=== PATIENT | male | born 1960 | race Caucasian/White ===

== ENCOUNTER 2020-12-10 01:31 | Inpatient (IN) | payer OTHER ==
[2020-12-10] VITALS (19 sets, daily range): BP systolic 91–122; BP diastolic 66–83
[~2020-12-10] VITALS: Ht 188 cm; Wt 85.3 kg
[2020-12-10 02:05] LABS: ABG PCO2 56 mmHg (35-45); ABG PH 7.38 (7.35-7.45); ABG PO2 40 mmHg (80-105)
[2020-12-10 02:06] LABS: ABG HCO3 33 mmol/L (22-26); ABG TCO2 35
[2020-12-10 02:32] LABS: BASOPHILS # (AUTO) 0.1 (0.0-0.1); BASOPHILS % 0.5 % (0.0-1.0); EOSINOPHILS # (AUTO) 0.8 (0.0-0.4); EOSINOPHILS % 6.5 % (0.0-6.0); HEMOGLOBIN 10.3 g/dL (14.0-18.0); LYMPHOCYTES # (AUTO) 1.5 (1.0-3.2); LYMPHOCYTES % 12.8 % (18.0-39.1); MEAN CORPUSCULAR HGB CONC 30.3 g/dL (31-35); MEAN CORPUSCULAR VOLUME 102.4 fL (81-99); MONOCYTES # (AUTO) 0.5 (0.2-0.8); MONOCYTES % 4.5 % (4.4-11.3); NEUTROPHILS # (AUTO) 8.7 (2.1-6.9); PLATELET COUNT 299 x10e3/uL (140-360); RED BLOOD COUNT 3.32 x10e6/uL (4.3-5.7); RED CELL DISTRIBUTION WIDTH 17.9 % (11.7-14.4)
[2020-12-10 02:38] LABS: ALANINE AMINOTRANSFERASE 16 IU/L (0-55); ALBUMIN 3.6 g/dL (3.5-5.0); ALBUMIN/GLOBULIN RATIO 0.7 (0.8-2.0); ALKALINE PHOSPHATASE 156 IU/L (40-150); ANION GAP 19.5 mmol/L (8-16); BLOOD UREA NITROGEN 19 mg/dL (7-26); BUN/CREATININE RATIO 16 (6-25); CALCIUM 9.7 mg/dL (8.4-10.2); CARBON DIOXIDE 28 mmol/L (22-29); CHLORIDE 97 mmol/L (98-107); CREATINE KINASE 27 IU/L (30-200); CREATININE, SERUM 1.16 mg/dL (0.72-1.25); EST GLOMERULAR FILTRATION RATE > 60 ML/MIN (60-); GLUCOSE 173 mg/dL (74-118); POTASSIUM 4.5 mmol/L (3.5-5.1); SODIUM 140 mmol/L (136-145)
[2020-12-10 03:22] LABS: INR 1.22; PARTIAL THROMBOPLASTIN TIME 33.3 seconds (23.8-35.5); PROTHROMBIN TIME 16.2 seconds (11.9-14.5)
[2020-12-10 03:33] LABS: B-TYPE NATRIURETIC PEPTIDE2 684.6 pg/mL (0-100)
[2020-12-10] MEDS ORDERED: CEFTRIAXONE SOD 1 GM in SODIUM CHLORIDE 0.9% 50ML 50 ML IV STA (03:39)
[2020-12-10] MEDS ORDERED: CEFTRIAXONE SOD 1 GM/50 ML BAG IV ONE (03:45)
[2020-12-10] MEDS ORDERED: AZITHROMYCIN 500MG/NS 250 ML 250 ML IV ONE (03:45)
[2020-12-10] MEDS ORDERED: IOPAMIDOL 370 MG/ML 200 ML INFUS..BTL INJ ONE (03:56)
[2020-12-10] MEDS ORDERED: SODIUM CHLORIDE 0.9% 50ML 50 ML ONE ×2 (03:57→20:01)
[2020-12-10] MEDS ORDERED: SODIUM CHLORIDE FLUSH 10 ML SYR INJ PRN (04:00)
[2020-12-10] MEDS ORDERED: DEXTROSE 50% SYRINGE 50 ML IV PRN (04:00)
[2020-12-10] MEDS ORDERED: FUROSEMIDE INJ 10 MG/ML 4 ML VIAL IV ONE (04:00)
[2020-12-10 07:00] LABS: CLARITY,URINE CLOUDY (CLEAR); COLOR,URINE YELLOW (YELLOW); KETONES,URINE NEGATIVE (NEGATIVE); LEUKOCYTE ESTERASE ,URINE LARGE (NEGATIVE); NITRITE,URINE NEGATIVE (NEGATIVE); PROTEIN,URINE DIPSTICK NEGATIVE (NEGATIVE); URINE UROBILINOGEN 0.2 mg/dL (0.2 - 1)
[2020-12-10 07:30] LABS: BACTERIA,URINE MODERATE /HPF; EPITHELIAL CELLS,URINE RARE /LPF; RBC,URINE 21-50 /HPF (0-5); WBC,URINE (MAN) >50 /HPF (0-5)
[2020-12-10] MEDS: INSULIN REGULAR, HUMAN 100 UNIT/1 ML 3ML VIAL SQ SCH ×4 (07:30→20:45)
[2020-12-10] MEDS ORDERED: ELIQUIS2.5 MG PO (08:33)
[2020-12-10] MEDS ORDERED: CYMBALTA30 MG (08:33)
[2020-12-10] MEDS ORDERED: FERROUS SULFAT325 MG PO (08:33)
[2020-12-10] MEDS ORDERED: ASPIRIN CHEW81 MG PO (08:33)
[2020-12-10] MEDS ORDERED: DILTIAZEM HCL30 MG PO (08:33)
[2020-12-10] MEDS ORDERED: DOCUSATE SODIU100 MG PO (08:33)
[2020-12-10] MEDS ORDERED: CLONAZEPAM0.5 MG PO (08:33)
[2020-12-10] MEDS ORDERED: VITAMIN B-121000 MC2 PO (08:33)
[2020-12-10] MEDS ORDERED: METOPROLOL TARTRATE 50 MG TAB PO SCH (09:00)
[2020-12-10] MEDS ORDERED: ASPIRIN 81 MG CHEW TAB PO SCH (09:00)
[2020-12-10] MEDS ORDERED: FUROSEMIDE INJ 10 MG/ML 4 ML VIAL IV SCH ×2 (09:00→17:00)
[2020-12-10] MEDS ORDERED: APIXAB 2.5 MG TABLET PO SCH ×3 (09:00→17:00)
[2020-12-10] MEDS ORDERED: FOLIC ACID0.4 MG PO (09:03)
[2020-12-10] MEDS ORDERED: MIRTAZAPINE15 MG PO (09:03)
[2020-12-10] MEDS ORDERED: KLOR-CON20 MEQ (09:03)
[2020-12-10] MEDS ORDERED: ATIVAN0.5 MG PO (09:03)
[2020-12-10] MEDS ORDERED: TRAZODONE HCL50 MG PO (09:03)
[2020-12-10] MEDS ORDERED: POLYETHYLENE GL17 GM PO (09:03)
[2020-12-10] MEDS ORDERED: HYDROCODON-ACE1 EA11 PO (09:03)
[2020-12-10] MEDS ORDERED: NEURONTIN100 MG PO (09:03)
[2020-12-10] MEDS ORDERED: METOPROLOL TAR100 MG PO (09:03)
[2020-12-10] MEDS ORDERED: PANTOPRAZOLE SO40 MG PO (09:03)
[2020-12-10] MEDS ORDERED: LEVALBUTER1.25 MG/3 INH (09:03)
[2020-12-10] MEDS ORDERED: LACTULOSE20 GM/30 M PO (09:03)
[2020-12-10] MEDS ORDERED: SODIUM BICARBO650 MG PO (09:03)
[2020-12-10] MEDS ORDERED: LEVETIRACETAM500 MG PO (09:03)
[2020-12-10] MEDS ORDERED: FUROSEMIDE40 MG PO (09:03)
[2020-12-10] MEDS ORDERED: GUAIFENESI100 MG/5 M PO (09:03)
[2020-12-10] MEDS ORDERED: SENOKOT-S TABL1 EACH PO (09:03)
[2020-12-10 09:09] LABS: CREATINE KINASE MB 0.8 ng/mL (0-5.0)
[2020-12-10] MEDS ORDERED: MULTI-VITAMIN1 EACH PO (09:10)
[2020-12-10] MEDS ORDERED: LEVALBUTEROL HCL SOLN NEBU 1.25 MG/3 ML NEB INH PRN (09:15)
[2020-12-10] MEDS: ASPIRIN 81 MG CHEW TAB PO SCH (09:56)
[2020-12-10] MEDS ORDERED: LACTULOSE SYRUP 20 GM/30 ML UDC PO PRN (13:15)
[2020-12-10] MEDS ORDERED: METOPROLOL TARTRATE INJ 1 MG/ML VIAL IV PRN (13:45)
[2020-12-10] MEDS ORDERED: ACETAMINOPHEN 325 MG TAB PO PRN (13:45)
[2020-12-10] MEDS ORDERED: ONDANSETRON HCL INJ 2MG/ML 2ML 2 MG/ML VIAL IV PRN (13:45)
[2020-12-10] MEDS ORDERED: DILTIAZEM HCL 30 MG TAB PO SCH (14:00)
[2020-12-10] MEDS: GABAPENTIN 100 MG CAP PO SCH (14:11)
[2020-12-10] MEDS: LEVETIRACETAM 500 MG TAB PO SCH (14:11)
[2020-12-10] MEDS: DOCUSATE SODIUM 100 MG CAP PO SCH (16:44)
[2020-12-10] MEDS: DULOXETINE HCL 30 MG DELAYED RELEASE PO SCH (16:44)
[2020-12-10 18:20] LABS: CREATINE KINASE MB 0.9 ng/mL (0-5.0)
[2020-12-10] MEDS: ACETAMINOPHEN/CODEINE 300MG - 30MG TAB PO PRN (19:11)
[2020-12-10] MEDS: CEFTRIAXONE SOD 1 GM/50 ML BAG IV SCH (20:01)
[2020-12-10] MEDS ORDERED: CEFTRIAXONE SOD 1 GM VIAL ONE (20:01)
[2020-12-10] MEDS: AZITHROMYCIN 500MG/NS 250 ML 250 ML IV SCH (20:44)
[2020-12-10] MEDS: METOPROLOL TARTRATE 50 MG TAB PO SCH (20:44)
[2020-12-10] MEDS: MIRTAZAPINE 15 MG TAB PO SCH (20:45)
[2020-12-10] MEDS ORDERED: ENOXAPARIN SOD INJ 40 MG/0.4 ML SYR SC SCH (21:00)
[2020-12-10] MEDS: TRAZODONE HCL 50 MG TAB PO PRN (21:55)
[2020-12-11] VITALS (25 sets, daily range): BP systolic 95–115; BP diastolic 61–88
[2020-12-11] MEDS: LEVETIRACETAM 500 MG TAB PO SCH ×2 (01:27→13:54)
[2020-12-11] MEDS: GABAPENTIN 100 MG CAP PO SCH ×2 (01:27→13:55)
[2020-12-11 05:03] LABS: BASOPHILS % 0.5 % (0.0-1.0); EOSINOPHILS # (AUTO) 0.4 (0.0-0.4); EOSINOPHILS % 4.8 % (0.0-6.0); HEMATOCRIT 31.2 % (38.2-49.6); HEMOGLOBIN 9.2 g/dL (14.0-18.0); LYMPHOCYTES # (AUTO) 0.7 (1.0-3.2); LYMPHOCYTES % 8.4 % (18.0-39.1); MEAN CORPUSCULAR HEMOGLOBIN 30.4 pg (28-32); MEAN CORPUSCULAR HGB CONC 29.5 g/dL (31-35); MONOCYTES # (AUTO) 0.5 (0.2-0.8); MONOCYTES % 6.6 % (4.4-11.3); NEUTROPHILS # (AUTO) 6.2 (2.1-6.9); NEUTROPHILS % 79.3 % (38.7-80.0); PLATELET COUNT 197 x10e3/uL (140-360); RED BLOOD COUNT 3.03 x10e6/uL (4.3-5.7); RED CELL DISTRIBUTION WIDTH 17.8 % (11.7-14.4)
[2020-12-11 05:27] LABS: ALANINE AMINOTRANSFERASE 15 IU/L (0-55); ALBUMIN 3.1 g/dL (3.5-5.0); ALBUMIN/GLOBULIN RATIO 0.8 (0.8-2.0); ALKALINE PHOSPHATASE 131 IU/L (40-150); ANION GAP 14.7 mmol/L (8-16); BLOOD UREA NITROGEN 19 mg/dL (7-26); BUN/CREATININE RATIO 22 (6-25); CALCIUM 9.1 mg/dL (8.4-10.2); CARBON DIOXIDE 34 mmol/L (22-29); CHLORIDE 95 mmol/L (98-107); CREATININE, SERUM 0.85 mg/dL (0.72-1.25); EST GLOMERULAR FILTRATION RATE > 60 ML/MIN (60-); GLUCOSE 92 mg/dL (74-118); POTASSIUM 3.7 mmol/L (3.5-5.1); SODIUM 140 mmol/L (136-145)
[2020-12-11] MEDS: INSULIN REGULAR, HUMAN 100 UNIT/1 ML 3ML VIAL SQ SCH ×4 (07:30→21:00)
[2020-12-11] MEDS: METOPROLOL TARTRATE 50 MG TAB PO SCH ×2 (09:00→21:23)
[2020-12-11] MEDS: ASPIRIN 81 MG CHEW TAB PO SCH (09:25)
[2020-12-11] MEDS: FUROSEMIDE INJ 10 MG/ML 4 ML VIAL IV SCH ×2 (09:25→17:37)
[2020-12-11] MEDS: DOCUSATE SODIUM 100 MG CAP PO SCH ×2 (09:26→17:37)
[2020-12-11] MEDS: FERROUS SULFATE 325 MG TAB PO SCH (09:26)
[2020-12-11] MEDS: SENNA-S TABLET PO SCH (09:28)
[2020-12-11] MEDS: PANTOPRAZOLE SOD 40 MG TABEC PO SCH (09:30)
[2020-12-11] MEDS: LORAZEPAM 0.5 MG TAB PO ONE ×2 (13:54→14:54)
[2020-12-11] MEDS: DULOXETINE HCL 30 MG DELAYED RELEASE PO SCH (17:37)
[2020-12-11] MEDS ORDERED: SODIUM CHLORIDE 0.9% 100 ML ONE (19:44)
[2020-12-11] MEDS ORDERED: CEFTRIAXONE SOD 1 GM VIAL ONE (19:44)
[2020-12-11] MEDS: CEFTRIAXONE SOD 1 GM/50 ML BAG IV SCH (19:53)
[2020-12-11] MEDS: ACETAMINOPHEN/CODEINE 300MG - 30MG TAB PO PRN (19:54)
[2020-12-11] MEDS: AZITHROMYCIN 500MG/NS 250 ML 250 ML IV SCH (20:53)
[2020-12-11] MEDS ORDERED: ENOXAPARIN INJ 80 MG/0.8 ML SYR SC SCH (21:00)
[2020-12-11] MEDS: MIRTAZAPINE 15 MG TAB PO SCH (21:23)
[2020-12-11] MEDS: LORAZEPAM 0.5 MG TAB PO PRN (23:56)
[2020-12-11] MEDS ORDERED: LORAZEPAM 0.5 MG TAB ONE (23:59)
[2020-12-12] VITALS (22 sets, daily range): BP systolic 92–122; BP diastolic 61–88
[2020-12-12] MEDS: LEVETIRACETAM 500 MG TAB PO SCH ×2 (00:15→14:19)
[2020-12-12] MEDS: GABAPENTIN 100 MG CAP PO SCH ×2 (00:15→14:19)
[2020-12-12 06:40] LABS: BASOPHILS % 0.4 % (0.0-1.0); EOSINOPHILS # (AUTO) 0.4 (0.0-0.4); EOSINOPHILS % 5.4 % (0.0-6.0); HEMATOCRIT 33.8 % (38.2-49.6); HEMOGLOBIN 10.1 g/dL (14.0-18.0); LYMPHOCYTES # (AUTO) 1.1 (1.0-3.2); LYMPHOCYTES % 14.8 % (18.0-39.1); MEAN CORPUSCULAR HEMOGLOBIN 30.5 pg (28-32); MEAN CORPUSCULAR HGB CONC 29.9 g/dL (31-35); MEAN CORPUSCULAR VOLUME 102.1 fL (81-99); MONOCYTES # (AUTO) 0.4 (0.2-0.8); MONOCYTES % 5.8 % (4.4-11.3); NEUTROPHILS # (AUTO) 5.4 (2.1-6.9); NEUTROPHILS % 73.1 % (38.7-80.0); PLATELET COUNT 213 x10e3/uL (140-360); RED BLOOD COUNT 3.31 x10e6/uL (4.3-5.7); RED CELL DISTRIBUTION WIDTH 17.5 % (11.7-14.4)
[2020-12-12 06:52] LABS: INR 1.11
[2020-12-12 06:53] LABS: PARTIAL THROMBOPLASTIN TIME 42.6 seconds (23.8-35.5)
[2020-12-12 07:00] LABS: ALANINE AMINOTRANSFERASE 15 IU/L (0-55); ALBUMIN 3.5 g/dL (3.5-5.0); ALBUMIN/GLOBULIN RATIO 0.7 (0.8-2.0); ALKALINE PHOSPHATASE 141 IU/L (40-150); ANION GAP 15.8 mmol/L (8-16); BLOOD UREA NITROGEN 20 mg/dL (7-26); BUN/CREATININE RATIO 20 (6-25); CALCIUM 9.5 mg/dL (8.4-10.2); CARBON DIOXIDE 37 mmol/L (22-29); CHLORIDE 92 mmol/L (98-107); EST GLOMERULAR FILTRATION RATE > 60 ML/MIN (60-); GLUCOSE 78 mg/dL (74-118); POTASSIUM 3.8 mmol/L (3.5-5.1); SODIUM 141 mmol/L (136-145)
[2020-12-12] MEDS: INSULIN REGULAR, HUMAN 100 UNIT/1 ML 3ML VIAL SQ SCH ×4 (07:30→20:45)
[2020-12-12] MEDS: METOPROLOL TARTRATE 50 MG TAB PO SCH ×2 (08:06→21:00)
[2020-12-12] MEDS: PANTOPRAZOLE SOD 40 MG TABEC PO SCH (08:08)
[2020-12-12] MEDS: FERROUS SULFATE 325 MG TAB PO SCH (08:08)
[2020-12-12] MEDS: DOCUSATE SODIUM 100 MG CAP PO SCH ×2 (08:08→16:19)
[2020-12-12] MEDS: SENNA-S TABLET PO SCH (08:08)
[2020-12-12] MEDS: ASPIRIN 81 MG CHEW TAB PO SCH (08:08)
[2020-12-12] MEDS: FUROSEMIDE INJ 10 MG/ML 4 ML VIAL IV SCH ×2 (10:41→16:19)
[2020-12-12 15:17] LABS: BODY FLUID APPEARANCE TURBID; BODY FLUID COLOR RED; BODY FLUID TYPE PLEURAL
[2020-12-12 15:21] LABS: WBC,BODY FLUID 571 cells/uL
[2020-12-12 15:22] LABS: RBC,BODY FLUID 31000 cells/uL
[2020-12-12 16:10] LABS: BASOPHILS,BODY FLUID 1 %; EOSINOPHILS,BODY FLUID 4 %; LYMPHOCYTES,BODY FLUID 19 %; MONO/MACROPHG,BODY FLUID 26 %; NEUTROPHILS,BODY FLUID 27 %; OTHER CELLS,BODY FLUID 23 %
[2020-12-12] MEDS: DULOXETINE HCL 30 MG DELAYED RELEASE PO SCH (16:19)
[2020-12-12] MEDS: CEFTRIAXONE SOD 1 GM/50 ML BAG IV SCH (20:00)
[2020-12-12] MEDS: MIRTAZAPINE 15 MG TAB PO SCH (22:17)
[2020-12-12] MEDS: AZITHROMYCIN 500MG/NS 250 ML 250 ML IV SCH (22:17)
[2020-12-12] MEDS: ACETAMINOPHEN/CODEINE 300MG - 30MG TAB PO PRN (22:18)
[2020-12-12] MEDS: TRAZODONE HCL 50 MG TAB PO PRN (22:18)
[2020-12-12] MEDS ORDERED: SODIUM CHLORIDE 0.9% 100 ML ONE (22:23)
[2020-12-13] VITALS (8 sets, daily range): BP systolic 104–116; BP diastolic 61–77
[2020-12-13] MEDS: LORAZEPAM 0.5 MG TAB PO PRN (01:20)
[2020-12-13] MEDS: LEVETIRACETAM 500 MG TAB PO SCH ×3 (01:20→13:22)
[2020-12-13] MEDS: GABAPENTIN 100 MG CAP PO SCH ×2 (01:20→13:22)
[2020-12-13 05:51] LABS: BASOPHILS % 0.3 % (0.0-1.0); EOSINOPHILS # (AUTO) 0.5 (0.0-0.4); EOSINOPHILS % 6.4 % (0.0-6.0); HEMATOCRIT 29.8 % (38.2-49.6); HEMOGLOBIN 9.3 g/dL (14.0-18.0); LYMPHOCYTES # (AUTO) 0.9 (1.0-3.2); LYMPHOCYTES % 12.2 % (18.0-39.1); MEAN CORPUSCULAR HEMOGLOBIN 30.9 pg (28-32); MEAN CORPUSCULAR HGB CONC 31.2 g/dL (31-35); MONOCYTES # (AUTO) 0.5 (0.2-0.8); MONOCYTES % 7.6 % (4.4-11.3); NEUTROPHILS # (AUTO) 5.1 (2.1-6.9); NEUTROPHILS % 73.1 % (38.7-80.0); PLATELET COUNT 203 x10e3/uL (140-360); RED BLOOD COUNT 3.01 x10e6/uL (4.3-5.7); RED CELL DISTRIBUTION WIDTH 17.3 % (11.7-14.4)
[2020-12-13 06:14] LABS: ANION GAP 15.1 mmol/L (8-16); BLOOD UREA NITROGEN 21 mg/dL (7-26); BUN/CREATININE RATIO 20 (6-25); CARBON DIOXIDE 34 mmol/L (22-29); CHLORIDE 94 mmol/L (98-107); CREATININE, SERUM 1.05 mg/dL (0.72-1.25); EST GLOMERULAR FILTRATION RATE > 60 ML/MIN (60-); GLUCOSE 114 mg/dL (74-118); POTASSIUM 3.1 mmol/L (3.5-5.1); SODIUM 140 mmol/L (136-145)
[2020-12-13] MEDS: INSULIN REGULAR, HUMAN 100 UNIT/1 ML 3ML VIAL SQ SCH ×4 (07:30→20:18)
[2020-12-13] MEDS: FERROUS SULFATE 325 MG TAB PO SCH (08:31)
[2020-12-13] MEDS: FUROSEMIDE INJ 10 MG/ML 4 ML VIAL IV SCH ×2 (08:31→18:10)
[2020-12-13] MEDS: ASPIRIN 81 MG CHEW TAB PO SCH (08:31)
[2020-12-13] MEDS: METOPROLOL TARTRATE 50 MG TAB PO SCH ×2 (08:32→20:17)
[2020-12-13] MEDS: PANTOPRAZOLE SOD 40 MG TABEC PO SCH (08:37)
[2020-12-13] MEDS: DOCUSATE SODIUM 100 MG CAP PO SCH ×2 (08:44→17:00)
[2020-12-13] MEDS: SENNA-S TABLET PO SCH (08:45)
[2020-12-13] MEDS ORDERED: POTASSIUM CHLORIDE 20 MEQ TAB CR PO ONE (11:45)
[2020-12-13] MEDS ORDERED: METOPROLOL TART50 MG PO (12:05)
[2020-12-13] MEDS ORDERED: ONDANSETRON HCL 4 MG ORAL DISINTEGRATING TAB PO PRN (17:45)
[2020-12-13] MEDS: DULOXETINE HCL 30 MG DELAYED RELEASE PO SCH (18:10)
[2020-12-13] MEDS: CEFTRIAXONE SOD 1 GM/50 ML BAG IV SCH (20:14)
[2020-12-13] MEDS ORDERED: CEFTRIAXONE SOD 1 GM VIAL ONE (20:15)
[2020-12-13] MEDS ORDERED: SODIUM CHLORIDE 0.9% 50ML 50 ML ONE (20:15)
[2020-12-13] MEDS: AZITHROMYCIN 500MG/NS 250 ML 250 ML IV SCH (20:15)
[2020-12-13] MEDS: MIRTAZAPINE 15 MG TAB PO SCH (20:16)
[2020-12-13] MEDS: ACETAMINOPHEN/CODEINE 300MG - 30MG TAB PO PRN (20:17)
[2020-12-14] MEDS: LEVETIRACETAM 500 MG TAB PO SCH (01:15)
[2020-12-14] MEDS: GABAPENTIN 100 MG CAP PO SCH (01:15)
[2020-12-14 05:25] VITALS: BP 102/73
[2020-12-14 06:10] LABS: BASOPHILS % 0.6 % (0.0-1.0); EOSINOPHILS # (AUTO) 0.5 (0.0-0.4); EOSINOPHILS % 7.8 % (0.0-6.0); HEMATOCRIT 30.7 % (38.2-49.6); HEMOGLOBIN 9.5 g/dL (14.0-18.0); MEAN CORPUSCULAR HEMOGLOBIN 30.5 pg (28-32); MEAN CORPUSCULAR HGB CONC 30.9 g/dL (31-35); MEAN CORPUSCULAR VOLUME 98.7 fL (81-99); MONOCYTES # (AUTO) 0.5 (0.2-0.8); MONOCYTES % 7.5 % (4.4-11.3); NEUTROPHILS # (AUTO) 4.4 (2.1-6.9); NEUTROPHILS % 68.5 % (38.7-80.0); PLATELET COUNT 202 x10e3/uL (140-360); RED BLOOD COUNT 3.11 x10e6/uL (4.3-5.7); RED CELL DISTRIBUTION WIDTH 17.2 % (11.7-14.4)
[2020-12-14 06:35] LABS: ANION GAP 14.5 mmol/L (8-16); BLOOD UREA NITROGEN 23 mg/dL (7-26); BUN/CREATININE RATIO 26 (6-25); CALCIUM 9.2 mg/dL (8.4-10.2); CARBON DIOXIDE 34 mmol/L (22-29); CHLORIDE 94 mmol/L (98-107); EST GLOMERULAR FILTRATION RATE > 60 ML/MIN (60-); GLUCOSE 94 mg/dL (74-118); MAGNESIUM 1.7 MG/DL (1.3-2.1); POTASSIUM 3.5 mmol/L (3.5-5.1); SODIUM 139 mmol/L (136-145)
[2020-12-14] MEDS: INSULIN REGULAR, HUMAN 100 UNIT/1 ML 3ML VIAL SQ SCH ×2 (07:30→11:30)
[2020-12-14 08:06] LABS: PHOSPHORUS 3.5 MG/DL (2.3-4.7)
[2020-12-14 08:46] VITALS: BP 109/74
[2020-12-14] MEDS: DOCUSATE SODIUM 100 MG CAP PO SCH (09:00)
[2020-12-14] MEDS: SENNA-S TABLET PO SCH (09:00)
[2020-12-14] MEDS: FUROSEMIDE INJ 10 MG/ML 4 ML VIAL IV SCH (09:10)
[2020-12-14] MEDS: FERROUS SULFATE 325 MG TAB PO SCH (09:11)
[2020-12-14] MEDS: ASPIRIN 81 MG CHEW TAB PO SCH (09:11)
[2020-12-14] MEDS: PANTOPRAZOLE SOD 40 MG TABEC PO SCH (09:12)
[2020-12-14] MEDS: METOPROLOL TARTRATE 50 MG TAB PO SCH (09:12)
[2020-12-14 09:17] VITALS: BP 109/74
[2020-12-14] MEDS ORDERED: APIXABAN 5 MG TABLET PO SCH (09:45)
[2020-12-14 12:11] VITALS: BP 107/65
[2020-12-14] MEDS ORDERED: ELIQUIS5 MG PO (14:24)
== END 2020-12-14 14:44 | disposition home or self-care (01) | DRG 291 ==
LOC: ER 01:36 → ERHOLD 04:38 → ICU 06:30 → MED/SURG3 12-12 21:50
PROVIDERS: ADMIT Internal Medicine; ATTEND Internal Medicine
PROC: 0W9B3ZX Drainage of Left Pleural Cavity, Percutaneous Approach, Diagnostic (ICD-10-PCS; principal; 2020-12-12)
DX: I13.0 Hypertensive heart and chronic kidney disease with heart failure and stage 1 through stage 4 chronic kidney disease, or unspecified chronic kidney disease (principal); I50.43 Acute on chronic combined systolic (congestive) and diastolic (congestive) heart failure; J96.01 Acute respiratory failure with hypoxia; I48.20 Chronic atrial fibrillation, unspecified; J90 Pleural effusion, not elsewhere classified; N18.30 Chronic kidney disease, stage 3 unspecified; Z79.01 Long term (current) use of anticoagulants; M19.90 Unspecified osteoarthritis, unspecified site; I73.9 Peripheral vascular disease, unspecified; F41.9 Anxiety disorder, unspecified; K21.9 Gastro-esophageal reflux disease without esophagitis; G47.00 Insomnia, unspecified; G62.9 Polyneuropathy, unspecified; J44.9 Chronic obstructive pulmonary disease, unspecified; Z20.822 Contact with and (suspected) exposure to COVID-19; E11.65 Type 2 diabetes mellitus with hyperglycemia
CPT/HCPCS: 32555; 36415; 51700; 71045; 71260; 74470; 80048; 80053; 81001; 82542; 82550; 82553; 82805; 82948; 83605; 83735; 83880; 84100; 84484; 85025; 85379; 85610; 85730; 87040; 87070; 87086; 87205; 88112; 88305; 89051; 93005; 93306; 99284; J0456; J0696; J1650; J1817; J1940; J7050; Q9967; U0002

== ENCOUNTER 2021-12-26 08:06 | Emergency (ER) | payer OTHER ==
[~2021-12-26] VITALS: Ht 188 cm; Wt 85.3 kg
[~2021-12-26 08:06] MED LIST: ASPIRIN CHEW81 MG PO; ATIVAN0.5 MG PO; CLONAZEPAM0.5 MG PO; CYMBALTA30 MG; DILTIAZEM HCL30 MG PO; DOCUSATE SODIU100 MG PO; ELIQUIS2.5 MG PO; ELIQUIS5 MG PO; FERROUS SULFAT325 MG PO; FOLIC ACID0.4 MG PO; FUROSEMIDE40 MG PO; GUAIFENESI100 MG/5 M PO; HYDROCODON-ACE1 EA11 PO; KLOR-CON20 MEQ; LACTULOSE20 GM/30 M PO; LEVALBUTER1.25 MG/3 INH; LEVETIRACETAM500 MG PO; METOPROLOL TAR100 MG PO; METOPROLOL TART50 MG PO; MIRTAZAPINE15 MG PO; MULTI-VITAMIN1 EACH PO; NEURONTIN100 MG PO; PANTOPRAZOLE SO40 MG PO; POLYETHYLENE GL17 GM PO; SENOKOT-S TABL1 EACH PO; SODIUM BICARBO650 MG PO; TRAZODONE HCL50 MG PO; VITAMIN B-121000 MC2 PO
[2021-12-26] MEDS ORDERED: KETOROLAC TROMETHAMINE 60 MG/2 ML VIAL IM ONE (08:30)
[2021-12-26 09:55] VITALS: BP 128/87
== END 2021-12-26 10:01 | disposition home or self-care (01) ==
LOC: ER 08:20
DX: M25.552 Pain in left hip (principal); G89.29 Other chronic pain; E11.22 Type 2 diabetes mellitus with diabetic chronic kidney disease; N18.9 Chronic kidney disease, unspecified; J44.9 Chronic obstructive pulmonary disease, unspecified; I50.9 Heart failure, unspecified; I48.91 Unspecified atrial fibrillation; Z86.718 Personal history of other venous thrombosis and embolism
CPT/HCPCS: 99283; J1885